=== PATIENT | female | born 1980 | race Caucasian/White ===

== ENCOUNTER 2017-03-22 10:56 | Inpatient (IN) | payer OTHER ==
[~2017-03-22] VITALS: Ht 170.2 cm; Wt 102.1 kg
[~2017-03-22 10:56] MED LIST: MOTRIN 800MG T800 MG PO; PRENATAL1 TA2 PO
[2017-03-22 14:10] LABS: ABSOLUTE BASOPHIL COUNT 0 /CUMM (0.0-0.2); ABSOLUTE EOSINOPHIL COUNT 0.1 /CUMM (0.0-0.7); ABSOLUTE GRANULOCYTE CT 9.3 /CUMM (1.4-6.5); ABSOLUTE LYMPH COUNT 2.2 /CUMM (1.2-3.4); ABSOLUTE MONOCYTE COUNT 0.8 /CUMM (0.10-0.60); BASOPHIL % 0.2 % (0.0-2.0); EOSINOPHIL % 0.8 % (0-5); GRANULOCYTE % 75.1 % (42.2-75.2); MEAN CORPUSCULAR HGB 28.7 PG (27.0-31.0); MEAN CORPUSCULAR HGB CONC 33.3 G/DL (33.0-37.0); MEAN CORPUSCULAR VOLUME 85.9 FL (81.0-99.0); MEAN PLATELET VOLUME 8.9 FL (7.4-10.4); PLATELET COUNT 194 /CUMM (130-400); RBC DISTRIBUTION WIDTH 13.8 % (11.5-14.5); RED BLOOD CELL CT 3.96 /CUMM (4.20-5.40); WHITE BLOOD CELL COUNT 12.4 /CUMM (4.8-10.8)
--- NOTE | 2017-03-22 17:51 | History & Physical ---
General Information and HPI MD Statement: I have seen and personally examined KELLY VIEYRA and documented this H&P. The patient is a 37 year old female at 40 weeks and 1 days gestation who presented with a chief complaint of PAINFULL CONTRACTIONS . Source of Information: patient, old records Exam Limitations: no limitations History of Present Illness: pt has been having contractions since last pm no rom, vb and there is good fm. 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 EENTM: Denies: blurred vision, double vision, visual changes. Cardiovascular: Denies: edema. Respiratory: Denies: short of breath. GI: Denies: diarrhea, nausea, vomiting. Neurological/Psychological: Denies: anxiety, depressed. Exam & Diagnostic Data Last 24 Hrs of Vital Signs/I&O vss Obstetric Exam Wgt Gained During : 40# Pelvimetry: tested to 7#9oz Dilation (cm): 4 Effacement (%): 60 Station: -2 Membranes: intact Fluid: unknown Fundal Height (cm): 40 Multiple Gestation? No Contractions: q4 min #1 - FHR Baseline: 140 Category: 1 Estimated Weight: 3800g Presentation: vtx Patient for Induction? No Physical Exam General Appearance Alert, Oriented X3, Cooperative, Moderate Distress Skin No Rashes HEENT Atraumatic Neck Supple Cardiovascular Regular Rate Lungs Clear to Auscultation Abdomen Normal Bowel Sounds, Soft, No Tenderness Neurological Normal Speech Labs Blood Type & Rh: O pos Antibody Screen: neg Hct/Hgb & Platelets #1: 39.4/12.6/179 Hct/Hgb & Platelets #2: 36.9/11.4/188 Rubella: imm VDRL #1: nr VDRL #2: nr HbsAg: neg HIV #1: nr HIV #2 nr 1 Hr P Group B Strep: neg Initial Ultrasound: 08/28/2016 10.5w Anatomy Ultrasound: 11/07/2016 [facility] normal Ultrasound for EFW: 02/27/2017 40%tile at 36 weeks Genetic Testing: cf negative, nt normal, msafp normal Last 24 Hrs of Labs/Jassi: Laboratory Tests 03/22/17 1345: CBC w Diff NO MAN DIFF REQ, RBC 3.96 L, MCV 85.9, MCH 28.7, RDW 13.8, MPV 8.9, Gran % 75.1, Lymphocytes % 17.7 L, Monocytes % 6.2, Eosinophils % 0.8, Basophils % 0.2, Absolute Granulocytes 9.3 H, Absolute Lymphocytes 2.2, Absolute Monocytes 0.8 H, Absolute Eosinophils 0.1, Absolute Basophils 0, PUBS MCHC 33.3, Urine Opiates Screen < 100.00, Methadone Screen < 40, Barbiturate Screen < 60, Ur Phencyclidine Scrn < 6.00, Amphetamines Screen < 100, U Benzodiazepines Scrn < 85, Urine Cocaine Screen < 50, Urine Cannabis Screen 36.20, Urine Color YEL, Urine Clarity CLEAR, Urine pH 6.5, Ur Specific [place] 1.010, Urine Protein NEG, Urine Ketones NEG, Urine Nitrite NEG, Urine Bilirubin NEG, Urine Urobilinogen 0.2, Ur Leukocyte Esterase MOD H, Ur Microscopic SEDIMENT EXAMINED, Urine RBC RARE, Urine WBC 1-3 H, Ur Epithelial Cells FEW, Urine Hemoglobin NEG, Urine Glucose NEG Microbiology 03/22 1658 URINE ROUT: Urine Culture - RECD Assessment/Plan Assessment/Plan: IUP at term active labor h/o mariajuana use tox screen pending AMA testing normal As Ranked By This Provider Problem List: 1. Active labor at term Core Measures Venous Thromboembolism VTE Risk Factors / No Mechanical VTE Prophylaxis d/t LowRisk-No Interven Req'd No VTE Pharm Prophylaxis d/t LowRisk-No Interven Req'd
--- NOTE | 2017-03-22 18:58 | Labor & Delivery Summary ---
Delivery Summary Vaginal Delivery: Vaginal: vertex Episiotomy/Lacerations: Episiotomy/Lacerations: none Placenta: Placenta: spontanteous, normal, 3 vessel, nuchal cord (x_) Anesthesia: block Apgars - 1 Min: 7 Apgars - 5 Min: 10 Additional Comments: tight nuchal cord and good block one pull on vaccume brought head from 0 to +2 with relief of variables then pt pushed vertex out.
[2017-03-22 21:00] VITALS: BP 126/72
[2017-03-23 08:01] LABS: ABSOLUTE BASOPHIL COUNT 0 /CUMM (0.0-0.2); ABSOLUTE EOSINOPHIL COUNT 0.1 /CUMM (0.0-0.7); ABSOLUTE GRANULOCYTE CT 11.3 /CUMM (1.4-6.5); ABSOLUTE LYMPH COUNT 2.8 /CUMM (1.2-3.4); ABSOLUTE MONOCYTE COUNT 1.1 /CUMM (0.10-0.60); BASOPHIL % 0.3 % (0.0-2.0); EOSINOPHIL % 0.8 % (0-5); GRANULOCYTE % 73.5 % (42.2-75.2); HEMATOCRIT 32.6 % (37-47); MEAN CORPUSCULAR HGB 28.6 PG (27.0-31.0); MEAN CORPUSCULAR HGB CONC 33.5 G/DL (33.0-37.0); MEAN CORPUSCULAR VOLUME 85.5 FL (81.0-99.0); MEAN PLATELET VOLUME 9.4 FL (7.4-10.4); PLATELET COUNT 181 /CUMM (130-400); RBC DISTRIBUTION WIDTH 13.7 % (11.5-14.5); RED BLOOD CELL CT 3.82 /CUMM (4.20-5.40); WHITE BLOOD CELL COUNT 15.4 /CUMM (4.8-10.8)
--- NOTE | 2017-03-23 09:21 | PN- Post Delivery/GYN ---
Subjective Subjective: doing well, no complaints. tolerate diet, void without difficulties. ambulating well Review of Systems Constitutional: Reports: no symptoms. Cardiovascular: Reports: no symptoms. Respiratory: Reports: no symptoms. Gastrointestinal: Reports: no symptoms. Genitourinary: Reports: see HPI. All Other Systems: Reviewed and Negative Objective Last 24 Hrs of Vital Signs/I&O Vital Signs Date Time Temp Pulse Resp B/P B/P Pulse O2 O2 Flow FiO2 Mean Ox Delivery Rate 03/22 2100 126/72 Intake & Output 03/23 1600 03/23 0800 03/23 0000 Intake Total Output Total Balance Patient 102.058 kg Weight Physical Exam: VSS general: NAD CV RRR lungs CTA B/L Abdomen: soft, nontender, uterus firm, fundus below umbilicus, lochia mild Ext: DCT (-) Current Medications: Current Medications Sig/Reynold Start time Last Medication Dose Route Stop Time Status Admin Acetaminophen 650 MG Q4P PRN 03/22 1900 AC 03/23 PO 0131 Butorphanol Tartrate 1 MG Q4P PRN 03/22 1345 DC 03/22 IM 1421 Butorphanol Tartrate 1 MG Q4P PRN 03/22 1345 DC 03/22 IV 1421 Docusate Sodium 100 MG BID PRN 03/22 190 AC PO Hydroxyzine HCl 50 MG AT BEDTIME NEED.. 03/22 190 AC PO Ibuprofen 800 MG Q6P PRN 03/22 1900 AC 03/23 PO 0624 Magnesium Hydroxide 30 ML DAILY PRN 03/22 1900 AC PO Oxytocin 20 UNITS Q5H 03/22 190 DC 03/22 Lactated Ringer's 1,000 ML IV 03/22 2359 1900 Last 24 Hrs of Labs/Jassi: Laboratory Tests 03/23/17 0615: CBC w Diff NO MAN DIFF REQ, RBC 3.82 L, MCV 85.5, MCH 28.6, RDW 13.7, MPV 9.4, Gran % 73.5, Lymphocytes % 18.3 L, Monocytes % 7.1, Eosinophils % 0.8, Basophils % 0.3, Absolute Granulocytes 11.3 H, Absolute Lymphocytes 2.8, Absolute Monocytes 1.1 H, Absolute Eosinophils 0.1, Absolute Basophils 0, PUBS MCHC 33.5 03/22/17 1345: CBC w Diff NO MAN DIFF REQ, RBC 3.96 L, MCV 85.9, MCH 28.7, RDW 13.8, MPV 8.9, Gran % 75.1, Lymphocytes % 17.7 L, Monocytes % 6.2, Eosinophils % 0.8, Basophils % 0.2, Absolute Granulocytes 9.3 H, Absolute Lymphocytes 2.2, Absolute Monocytes 0.8 H, Absolute Eosinophils 0.1, Absolute Basophils 0, PUBS MCHC 33.3, Urine Opiates Screen < 100.00, Methadone Screen < 40, Barbiturate Screen < 60, Ur Phencyclidine Scrn < 6.00, Amphetamines Screen < 100, U Benzodiazepines Scrn < 85, Urine Cocaine Screen < 50, Urine Cannabis Screen 36.20, Urine Color YEL, Urine Clarity CLEAR, Urine pH 6.5, Ur Specific [place] 1.010, Urine Protein NEG, Urine Ketones NEG, Urine Nitrite NEG, Urine Bilirubin NEG, Urine Urobilinogen 0.2, Ur Leukocyte Esterase MOD H, Ur Microscopic SEDIMENT EXAMINED, Urine RBC RARE, Urine WBC 1-3 H, Ur Epithelial Cells FEW, Urine Hemoglobin NEG, Urine Glucose NEG Microbiology 03/22 1658 URINE ROUT: Urine Culture - RECD Assessment/Plan Assessment/Plan 37yo, s/p vaccum assisted VD, PPD#1 1. ecnouarge ambulation and 2. RT PP care Attending MD Review Statement Attending Statement Attending MD Statement: examined this patient, discussed with nursing
[2017-03-24] MEDS ORDERED: IBUPROFEN800 M1 PO (08:53)
--- NOTE | 2017-03-24 08:57 | PN- OBGYN ---
Surgical Brief Attending Note Brief Attending Note: PPD#2 pt is resting in bed, no complaints, tolerate diet, void without difficulties. PE: VSS CV RRR Lungfs CTA B/L Abdomen: soft, nontender, uterus firm, fundus below umbilicus, lochia mild Ext: DCT (-) A/P: 37yo, s/p ,PPD#2 1. encourage ambulation and 2. RT PP care 3. will d/c home, f/u in office in 2 wks and 6wks, discharge instyructions given , she understand.
== END 2017-03-24 12:55 | DRG 560 ==
LOC: CBCO 10:56 → GNO 13:38
PROVIDERS: Obstetrics & Gynecology
PROC: 10E0XZZ Delivery of Products of Conception, External Approach (ICD-10-PCS; principal; 2017-03-22)
PROC: 10D07Z6 Extraction of Products of Conception, Vacuum, Via Natural or Artificial Opening (ICD-10-PCS; 2017-03-22)
DX: O48.0 Post-term pregnancy (principal); O69.1XX0 Labor and delivery complicated by cord around neck, with compression, not applicable or unspecified; Z3A.40 40 weeks gestation of pregnancy; Z37.0 Single live birth
CPT/HCPCS: GNOS; 36415; 80307; 81001; 87086; 96372; 96374; G0463; J0595; J7120; Q2036